=== PATIENT | male | born 1945 | race Caucasian/White ===

== ENCOUNTER → 2017-09-15 | Outpatient (REF) | payer MEDICARE ==
[2017-09-15 14:59] LABS: PLATELET COUNT, AUTOMATED 222 K/uL (150-450)
== END ==
PROVIDERS: ATTEND Family Medicine
DX: R09.02 Hypoxemia (principal); R05 Cough
CPT/HCPCS: 82040; 82247; 82310; 82374; 82435; 82565; 82947; 83880; 84075; 84132; 84155; 84295; 84443; 84450; 84460; 84484; 84520; 85025; 85379

== ENCOUNTER → 2017-09-15 | Outpatient (CLI) | payer MEDICARE ==
--- NOTE | 2017-09-15 15:09 | RADIOLOGY IMAGING REPORT ---
FACILITY: [facility] [place] PATIENT NAME: Ahmet Bolton : 1945 MR: [id number] V: [id number] EXAM DATE: ORDERING PHYSICIAN: JOY VERAS TECHNOLOGIST: [place] [facility] [place]met [place] : 1945 Visit/Account:[id number] Date of Sevice: 09/15/2017 CHEST PA AND LAT COMPARISONS: None. ADDITIONAL PERTINENT HISTORY: Shortness of breath for 5 days with cough FINDINGS: Cardiomediastinal silhouette: Negative. Pulmonary vasculature: Negative. Lung anton: Minimal bibasilar regions of scarring. Otherwise negative Pleural spaces: Negative. Osseous structures: Negative. Surrounding soft tissues: Negative. IMPRESSION: No evidence of acute cardiopulmonary disease. Report Dictated By: Rodrigo Becker MD at 09/15/2017 3:05 PM Report E-Signed By: Rodrigo Becker MD at 09/15/2017 3:06 PM WSN:[id number]
== END ==
LOC: RAD 14:32
PROVIDERS: ATTEND Family Medicine
DX: R91.8 Other nonspecific abnormal finding of lung field (principal)
CPT/HCPCS: 71046